=== PATIENT | female | born 1975 | race Caucasian/White ===

== ENCOUNTER 2016-07-29 10:49 | Emergency (ER) | payer BC, MEDICAID ==
[2016-07-29] MEDS ORDERED: ALBUTEROL SULFATE/IPRATROPIUM 3 ML NEBU IH ONE ×2 (11:27→11:46)
--- OUTSIDE RECORDS SUMMARY | 2016-07-29 11:38 | XMS REPORT | Continuity of Care Document ---
:1975 Demographics Phone Unavailable Preferred Language Unknown Marital Status Unknown Adventism Affiliation Unknown Race Unknown Ethnic Group Unknown Author Organization [facility] ([facility]) [place] [address] Phone [phone] Care Team Providers Name Role Phone Unavailable Primary Care Provider Unavailable Source Comments This disclosure is being made pursuant to the Care Everywhere program, applicable federal and state laws, and may not contain all informaitonavailable regarding this patient.[facility] ([facility]) Active Allergies and Adverse Reactions Not on File Current Medications Not on file Active Problems Not on file Social History Tobacco Use Types Packs/Day Years Used Date Never Assessed Plan of Care Health Maintenance Due Date Last Done Comments Hepatitis B Vaccine (1 of 3 - Primary Series) 1975 Tdap Vaccine 1988 Lipid Disorder Screening 09/28/1995 MMR Vaccine 09/28/1995 Td Vaccine 09/28/1995 Cervical Cancer Screening 09/28/2007 Influenza Vaccine: Seasonal (#1) 01/17/2016 Results from Last 3 Months Not on file
[2016-07-29 11:50] LABS: Hematocrit 39.7 % (37.0-47.0); Hemoglobin 12.8 gm/dL (12.5-16.0); Mean Cell Volume 89.6 fl (78-100); Mean Corpuscular Hemoglobin 28.9 pg (27-31); Mean Corpuscular Hgb Conc 32.2 g/dl (32-36); Mean Platelet Volume 9.2 fl (6.0-9.5); Neutrophil # 8.5 K/mm3 (1.3-6.0); Platelet Count 367 K/mm3 (150-450); Red Blood Count 4.43 M/mm3 (4.2-5.4); Red Cell Distribution Width 13.2 % (11.5-14.0); White Blood Count 10.6 K/mm3 (4.0-10.5)
[2016-07-29] MEDS ORDERED: METHYLPREDNISOLONE SOD SUCC/PF 40 MG/ML VIAL IM ONE (11:51)
--- NOTE | 2016-07-29 11:57 | ERNOTE ---
Dyspnea - Date Date of Service: 07/29/16 - General Presenting Symptoms: shortness of breath Time Seen by Provider: 07/29/16 11:27 Source: patient Exam Limitations: no limitations - Immun/Allergies/Home Medications Immunizations: IMMUNIZATION HX Immunizations Up to Date Yes History of Influenza Vaccine Yes Hx Pneumococcal Vaccination No Allergies/Adverse Reactions: Allergies No Known Allergies Allergy (Verified 01/04/16 13:42) Home Medications: HOME MEDICATIONS Atenolol [Tenormin] 50 mg PO DAILY 12/14/12 [Last Taken Unknown] Baclofen 20 mg PO QID 11/28/14 [Last Taken Unknown] traMADol HCL [Ultram] 2 tab PO QID PRN #240 tablet 09/11/15 [Last Taken Unknown] HYDROcodone/ACETAMINOPHEN [Dawson 5-325] 1 tab PO Q4H PRN 12/05/15 [Last Taken Unknown] Sulfamethoxazole/Trimethoprim [Bactrim Ds] 1 tab PO BID #28 tab 12/05/15 [Last Taken Unknown] Benzonatate [Tessalon Perle] 100 mg PO QID 07/29/16 [Last Taken Unknown] Doxycycline Monohydrate 100 mg PO BID #20 tablet 07/29/16 [Last Taken Unknown] Ranitidine HCl [Zantac] 150 mg PO BID 07/29/16 [Last Taken Unknown] predniSONE [Prednisone] 10 mg PO DAILY #21 tab 07/29/16 [Last Taken Unknown] - History of Present Illness Narrative: Pt. comes in with c/o SOB for four days. Pt. states that she had a upper resp infection four weeks ago that resolved two weeks ago with abx and steroids but then returned four days ago and has quickly worsened. Pt. states that she has been taking albuterol inhaler every four hours that she is prescribed for her asthma. Review of Systems - Review of Systems Constitutional: Present: fatigue, malaise. Absent: fever, chills, weakness EYE: Present: no symptoms reported ENT: Present: nose congestion, nasal drainage. Absent: ear pain, sore throat Respiratory: Present: shortness of breath, cough, wheezing. Absent: orthopnea, stridor Cardiology: Present: chest pain - Anterior and posterior costochondritis. Absent: palpitations, edema Gastrointestinal/Abdominal: Present: no symptoms reported. Absent: nausea, vomiting, diarrhea, abdominal pain Genitourinary: Present: no symptoms reported Musculoskeletal: Present: no symptoms reported. Absent: back pain, joint pain Skin: Present: no symptoms reported Neurological: Present: no symptoms reported. Absent: headache, dizziness/light- headedness, numbness, tingling All Other Systems: All systems neg except as marked - Patient's Past Medical History Patient History - Medical: Chronic Pain, Fibromyalgia, GERD, Migraines, Obesity Patient History - Cardiac/Respiratory: Asthma, Hypertension Patient History - Cancer: No Hx of Cancer Patient History - Surgical Procedures: Cholecystectomy, T & A Patient History - Other: None LMP (females 10-50): 2 months LMP (Calendar): 05/30/16 - Family History Mother Family History - Medical: No pertinent hx Father Family History - Medical: - Social History Living Situations: significant other Abuse History: No History of abuse Psych History: No pertinent hx Smoking Status: Never smoker Alcohol Use: none Drug Use: none - Immunizations Immunizations Up to Date: Yes Hx Pneumococcal Vaccination: No History of Influenza Vaccine: Yes Physical Exam - Physical Exam General Appearance: Present: wd/wn, alert, no apparent distress Eye Exam: Normal inspection: bilateral, PERRL: bilateral, EOMI: bilateral Ears, Nose, Throat: Present: normal ENT inspection, hearing grossly normal, normal pharynx Neck: Present: normal inspection, nontender. Absent: lymphadenopathy (R), lymphadenopathy (L) Respiratory: Present: no respiratory distress, no accessory muscle use, chest tenderness - B 6-10 intercostals, decreased breath sounds, wheezing - exp throughout upper lobes. Absent: rales, rhonchi, stridor Cardiovascular/Chest: Present: regular rate, rhythm, no murmur, normal peripheral pulses. Absent: tachycardia, bradycardia Gastrointestinal/Abdominal: Present: normal bowel sounds, nontender, nondistended, soft, no organomegaly Back Exam: Present: normal inspection, normal range of motion, no CVA tenderness , no vertebral tenderness. Absent: decreased range of motion, muscle spasm Extremity Exam: Present: normal inspection, non-tender, no edema, normal range of motion Neurological Exam: Present: alert, oriented, normal mood/affect, no motor/ sensory deficits Skin Exam: Present: warm/dry, pallor. Absent: skin rash ED Progress - Results and Orders Patient's Lab Results:: I have reviewed the patient's lab results. - Vital Signs Patient's Vital Signs:: I have reviewed the patient's vital signs. Vital Signs: Vital Signs 07/29/16 07/29/16 10:54 11:16 Temperature 37.3 C Pulse Rate 88 84 Respiratory 18 26 H Rate Blood Pressure 192/119 149/92 O2 Sat by Pulse 96 96 Oximetry - EKG EKG: NSR EKG read: Interp. by me - X-Ray X-Ray #1 X-Ray: chest Interpretation: Interp. by me X-ray Comments: LML atelactasis vs infiltrate - Progress/Reassessment Chief Complaint: Dyspnea Departure Clinical Impression: Pneumonia Qualifiers: Pneumonia type: due to unspecified organism Laterality: left Lung location: unspecified part of lung Qualified Code(s): J18.9 - Pneumonia, unspecified organism - Departure Disposition: Home self-care Condition: Good Instructions: Pneumonia, Child, [id number] Additional Instructions: Please follow up with your primary provider in 2-3 days. Continue inhaler as prescribed. Increase water intake. Referrals: Nimesh Tenorio MD [Primary Care Provider] - Prescriptions: Doxycycline Monohydrate 100 mg PO BID #20 tablet predniSONE [Prednisone] 10 mg PO DAILY #21 tab
[2016-07-29] MEDS ORDERED: METHYLPREDNISOLONE ACETATE 80 MG/ML VIAL ONE (12:03)
[2016-07-29 12:10] LABS: ALT 38 U/L (19-67); AST 23 U/L (0-48); Albumin * 3.5 gm/dl (3.4-5.0); Alkaline Phosphatase * 67 U/L (50-170); Anion Gap 14.7 mmol/L (6.8-13.8); BNP * 229 pg/mL (5-150); BUN/Creatinine Ratio 19.2 (9.0-21.6); Bilirubin, Total 0.3 mg/dL (0.0-1.1); Blood Urea Nitrogen 14 mg/dL (3-23); Ca. Corrected For Albumin 9.1 mg/dL (8.4-10.2); Carbon Dioxide 27.4 mmol/L (24-32.6); Chloride 103 mmol/L (97-106); Glucose * 98 mg/dL (70-110); Potassium 4.1 mmol/L (3.4-4.6); Sodium 141 mmol/L (132-142); Total Protein 7.4 gm/dL (6.2-8.2); Troponin I Less than 0.017 ng/ml (0.00-0.10)
[2016-07-29] MEDS ORDERED: METHYLPREDNISOLONE SOD SUCC/PF 40 MG/ML VIAL ONE (12:14)
[2016-07-29 13:09] VITALS: BP 152/87
== END 2016-07-29 13:03 | disposition home or self-care (01) ==
LOC: ER 10:49
DX: J18.9 Pneumonia, unspecified organism (principal); K21.9 Gastro-esophageal reflux disease without esophagitis; I10 Essential (primary) hypertension